=== PATIENT | male | born 1980 | race African-American/Black ===

== ENCOUNTER 2018-07-04 08:30 | Emergency (ER) | payer BC ==
[~2018-07-04] VITALS: Ht 185.4 cm; Wt 104.3 kg
[2018-07-04 08:30] VITALS: BP 127/67
[~2018-07-04 08:30] MED LIST: NORFLEX100 MG PO; ULTRAM 50MG TAB50 MG PO
[2018-07-04] MEDS ORDERED: NAPROSYN500 MG PO (09:03)
[2018-07-04] MEDS ORDERED: NORFLEX100 MG PO (09:03)
== END 2018-07-04 09:18 | disposition home or self-care (01) ==
LOC: ER 08:30
DX: S39.012A Strain of muscle, fascia and tendon of lower back, initial encounter (principal); Z88.0 Allergy status to penicillin; V89.2XXA Person injured in unspecified motor-vehicle accident, traffic, initial encounter; Y93.89 Activity, other specified; Y92.89 Other specified places as the place of occurrence of the external cause; Y99.8 Other external cause status

== ENCOUNTER → 2018-07-13 | Outpatient (CLI) | payer BC ==
[~2018-07-13] MED LIST changes: +NAPROSYN500 MG PO
== END ==
LOC: RAD 09:32
DX: M54.5 Low back pain (principal)